=== PATIENT | female | born 1950 | race Caucasian/White ===

== ENCOUNTER 2019-10-17 16:34 | Emergency (ER) | payer OTHER ==
[~2019-10-17] VITALS: Ht 154.9 cm; Wt 79.8 kg
[2019-10-17 16:46] VITALS: BP 174/51; Ht 154.9 cm; Wt 79.8 kg
== END 2019-10-17 19:16 | disposition home or self-care (01) ==
LOC: ED 16:34
DX: S40.011A Contusion of right shoulder, initial encounter (principal); I10 Essential (primary) hypertension; V49.9XXA Car occupant (driver) (passenger) injured in unspecified traffic accident, initial encounter; Y93.89 Activity, other specified; Y92.413 State road as the place of occurrence of the external cause; Y99.8 Other external cause status
CPT/HCPCS: Q0092